=== PATIENT | female | born 1950 | race Caucasian/White ===

== ENCOUNTER → 2018-10-04 | Outpatient (CLI) | payer MEDICARE, OTHER ==
[~2018-10-04] MED LIST: CYCL-259 PO; DIAZ5TAB4 PO; FLUO15CR2 TP; OLME1TAB25 PO; OMEP-110 PO; OXYC-307 PO; OXYCODONE PO; PROG100C16 PO; RANI150T23 PO; STEROID; TRAM50TA2 PO; ZOLP10TA PO
== END | disposition home or self-care (01) ==
LOC: CFH 09:14
PROVIDERS: ATTEND Neurological Surgery
DX: I67.1 Cerebral aneurysm, nonruptured (principal)
CPT/HCPCS: 70544

== ENCOUNTER 2019-03-15 08:57 | Outpatient (CLI) | payer MEDICARE, OTHER ==
[~2019-03-15 08:57] MED LIST changes: +RANI-467 PO; -RANI150T23 PO
== END 2019-03-15 23:59 | disposition home or self-care (01) ==
LOC: CFH 08:57
PROVIDERS: ATTEND Licensed Practical Nurse
DX: Z12.31 Encounter for screening mammogram for malignant neoplasm of breast (principal)
CPT/HCPCS: 77067

== ENCOUNTER 2019-03-23 10:25 | Outpatient (CLI) | payer MEDICARE, OTHER | END 2019-03-23 23:59 | disposition home or self-care (01) | LOC: CFH 10:25 | PROVIDERS: ATTEND Licensed Practical Nurse | DX: M85.9 Disorder of bone density and structure, unspecified (principal); N95.8 Other specified menopausal and perimenopausal disorders; Z78.0 Asymptomatic menopausal state | CPT/HCPCS: 77080 ==

== ENCOUNTER → 2019-09-18 | Outpatient (CLI) | payer MEDICARE, OTHER | END | disposition home or self-care (01) | LOC: CFH 09:25 | PROVIDERS: ATTEND Neurological Surgery | DX: I67.1 Cerebral aneurysm, nonruptured (principal); I10 Essential (primary) hypertension; K21.9 Gastro-esophageal reflux disease without esophagitis; M19.90 Unspecified osteoarthritis, unspecified site; M54.5 Low back pain; Z88.8 Allergy status to other drugs, medicaments and biological substances | CPT/HCPCS: 70544 ==

== ENCOUNTER 2020-03-09 22:55 | Emergency (ER) | payer MEDICARE, OTHER ==
[~2020-03-09] VITALS: Ht 154.9 cm; Wt 84.4 kg
--- NOTE | 2020-03-09 23:52 | NUR ---
C/O NAUSEA AND METAL TASTE IN MOUTH X1 WEEK, REPORTS HAD DENTAL WORK DONE LAST WEEK WHEN SYMPTOMS STARTED.
[2020-03-09] MEDS ORDERED: HYDR-3652 PO (23:57)
[2020-03-09] MEDS ORDERED: ONDANSETRON 2MG/ML, 2ML ONE (23:59)
[2020-03-10] MEDS ORDERED: SODIUM CHLORIDE 0.9% 1,000ML IVBOLUS ONE
[2020-03-10 00:10] LABS: BASOPHILS # (AUTO) 0.04 x10^3/uL (0-0.1); BASOPHILS % (AUTO) 0 % (0-1); EOSINOPHILS # (AUTO) 0.11 x10^3/uL (0-0.4); EOSINOPHILS % (AUTO) 1 % (1-7); LYMPHOCYTES % (AUTO) 23 % (22-44); MD NO; MEAN CORPUSCULAR HEMOGLOBIN 30.1 pg (27.0-34.8); MEAN CORPUSCULAR HGB CONC 33.2 g/dL (32.4-35.8); MEAN CORPUSCULAR VOLUME 90.6 fL (80-100); MEAN PLATELET VOLUME 7.9 fL (7.4-10.4); MONOCYTES # (AUTO) 0.57 x10^3/uL (0.2-0.8); MONOCYTES % (AUTO) 5 % (2-9); NEUTROPHILS # (AUTO) 8.01 x10^3/uL (1.8-6.8); NEUTROPHILS % (AUTO) 71 % (42-75); PLATELET COUNT 281 x10^3/uL (130-400); RED BLOOD COUNT 5.28 x10^6/uL (3.82-5.3); RED CELL DISTRIBUTION WIDTH 12.9 % (9.6-15.2)
[2020-03-10 00:19] LABS: ALANINE AMINOTRANSFERASE 18 U/L (12-78); ALBUMIN 3.4 g/dL (3.4-5.0); ANION GAP 8 mmol/L (5-15); CALCIUM 8.6 mg/dL (8.5-10.1); CHLORIDE 109 mmol/L (98-107); CREATININE 0.87 mg/dL (0.55-1.02)
[2020-03-10 00:24] LABS: ALKALINE PHOSPHATASE 80 U/L (45-117); BILIRUBIN,TOTAL 0.3 mg/dL (0.2-1.0); TOTAL PROTEIN 7.2 g/dL (6.4-8.2); TROPONIN I < 0.015 ng/mL (0.000-0.045)
--- NOTE | 2020-03-10 01:15 | NUR ---
URINE SAMPLE COLLECTED.
[2020-03-10 01:26] LABS: MICROSCOPIC NOT IND
[2020-03-10] MEDS ORDERED: ONDANSETRON 2MG/ML, 2ML ONE (01:37)
[2020-03-10 01:44] VITALS: BP 157/69
--- NOTE | 2020-03-10 01:45 | NUR ---
PT C/O NAUSEA, MEDICATED PER OCT. VSS.
--- NOTE | 2020-03-10 01:53 | NUR ---
PT TAKEN TO CT.
[2020-03-10] MEDS ORDERED: ONDANSETRON 2MG/ML, 2ML IVPush ONE ×2 (02:00)
[2020-03-10] MEDS ORDERED: OMNIPAQUE 350 MG/ML, 100ML BOTTLE ONE (02:02)
== END 2020-03-10 02:52 | disposition home or self-care (01) ==
LOC: ED 03-10 01:38
DX: R11.0 Nausea (principal); R19.7 Diarrhea, unspecified; R10.84 Generalized abdominal pain; R94.31 Abnormal electrocardiogram [ECG] [EKG]; I10 Essential (primary) hypertension; K21.9 Gastro-esophageal reflux disease without esophagitis; Z90.89 Acquired absence of other organs; Z90.722 Acquired absence of ovaries, bilateral
CPT/HCPCS: 36415; 74177; 80053; 81003; 83690; 84484; 85025; 93005; 96361; 96374; 96376; 99285; J2405; J7030; Q9967

== ENCOUNTER 2021-04-27 19:30 | Emergency (ER) | payer MEDICARE, OTHER ==
[~2021-04-27] VITALS: Ht 154.9 cm; Wt 79.4 kg
[~2021-04-27 19:30] MED LIST changes: -CYCL-259 PO; +CYCL10TA2 PO; +HYDR-1067 PO; -OXYC-307 PO; +OXYC-501 PO
[2021-04-27 21:15] LABS: BASOPHILS % (AUTO) 1 % (0-1); EOSINOPHILS % (AUTO) 0 % (1-7); LYMPHOCYTES % (AUTO) 20 % (22-44); MEAN CORPUSCULAR HEMOGLOBIN 30.6 pg (27.0-34.8); MEAN CORPUSCULAR HGB CONC 33.6 g/dL (32.4-35.8); MEAN PLATELET VOLUME 8.4 fL (7.4-10.4); MONOCYTES % (AUTO) 6 % (2-9); NEUTROPHILS % (AUTO) 73 % (42-75); PLATELET COUNT 220 x10^3/uL (130-400); RED BLOOD COUNT 5.37 x10^6/uL (3.82-5.3); RED CELL DISTRIBUTION WIDTH 12.8 % (9.6-15.2)
[2021-04-27 21:23] LABS: ALBUMIN 3.5 g/dL (3.4-5.0); ANION GAP 6 mmol/L (5-15); CALCIUM 9.1 mg/dL (8.5-10.1); CHLORIDE 105 mmol/L (98-107)
[2021-04-27 21:27] LABS: ALANINE AMINOTRANSFERASE 21 U/L (12-78); ALKALINE PHOSPHATASE 107 U/L (45-117); BILIRUBIN,TOTAL 0.4 mg/dL (0.2-1.0); CREATININE 0.83 mg/dL (0.55-1.02); TOTAL PROTEIN 7.6 g/dL (6.4-8.2)
[2021-04-27 21:58] LABS: TROPONIN I < 0.015 ng/mL (0.000-0.045)
[2021-04-27] MEDS ORDERED: SODIUM CHLORIDE FLUSH 10ML SYR IVF ONE (22:00)
--- NOTE | 2021-04-27 22:24 | NUR ---
LAB AT BEDSIDE.
[2021-04-27] MEDS ORDERED: PROMETHAZINE 25 MG/ML, 1ML IM ONE (22:30)
[2021-04-27 22:46] LABS: TROPONIN I < 0.015 ng/mL (0.000-0.045)
[2021-04-27] MEDS ORDERED: SODIUM CHLORIDE 0.9% 1,000ML IVBOLUS ONE (23:00)
[2021-04-27] MEDS ORDERED: ONDANSETRON 2MG/ML, 2ML IVPush ONE (23:00)
[2021-04-27] MEDS ORDERED: hydrALAzine 20 MG/ML, 1ML IV ONE (23:00)
[2021-04-27] MEDS ORDERED: ONDANSETRON 2MG/ML, 2ML ONE (23:07)
[2021-04-27] MEDS ORDERED: OMNIPAQUE 350 MG/ML, 100ML BOTTLE ONE (23:56)
[2021-04-28 01:03] LABS: MICROSCOPIC NOT IND
[2021-04-28] MEDS ORDERED: ONDANSETRON 2MG/ML, 2ML ONE (02:30)
[2021-04-28 02:37] VITALS: BP 162/89
[2021-04-28] MEDS ORDERED: ONDANSETRON 2MG/ML, 2ML IVPush ONE (03:00)
== END 2021-04-28 02:40 | disposition home or self-care (01) ==
LOC: ED 22:21
DX: R11.2 Nausea with vomiting, unspecified (principal); R19.7 Diarrhea, unspecified; K76.0 Fatty (change of) liver, not elsewhere classified; I10 Essential (primary) hypertension
CPT/HCPCS: 36415; 70450; 74177; 80053; 81003; 83690; 84484; 85025; 93005; 96374; 96376; 99285; J2405; Q9967

== ENCOUNTER → 2021-05-07 | Outpatient (CLI) | payer MEDICARE, OTHER | END | disposition home or self-care (01) | LOC: CFH 07:33 | PROVIDERS: ATTEND Nurse Practitioner Family | DX: Z12.31 Encounter for screening mammogram for malignant neoplasm of breast (principal); N95.9 Unspecified menopausal and perimenopausal disorder | CPT/HCPCS: 77063; 77067; 77080 ==